=== PATIENT | female | born 1955 | race Caucasian/White ===

== ENCOUNTER → 2020-10-29 | Outpatient (CLI) | payer OTHER ==
[~2020-10-29] MED LIST: ASPI81TA45 PO; DIPH25CA61 PO; LEVO112T2 PO; MONT10TA6 PO; PROP10TA16 PO
== END | disposition home or self-care (01) ==
LOC: STAR 09:25
PROVIDERS: ATTEND Surgery
DX: Z01.818 Encounter for other preprocedural examination (principal); K43.9 Ventral hernia without obstruction or gangrene; D48.1 Neoplasm of uncertain behavior of connective and other soft tissue; Z20.822 Contact with and (suspected) exposure to COVID-19
CPT/HCPCS: 93005; U0003; U0005

== ENCOUNTER 2020-11-04 08:35 | Day surgery (SDC) | payer OTHER ==
[~2020-11-04] VITALS: Ht 154.9 cm; Wt 73.5 kg
[2020-11-04] MEDS ORDERED: CHLORHEXIDINE 15 ML UDC PO ONE (09:00)
[2020-11-04] MEDS ORDERED: LACTATED RINGERS 1,000 ML IV SCH (09:00)
[2020-11-04 09:06] VITALS: BP 124/82
[2020-11-04] MEDS ORDERED: MIDAZOLAM 1 MG/ML, 2ML ONE (09:10)
[2020-11-04] MEDS ORDERED: FENTANYL PF 250 MCG/5ML ONE (09:10)
[2020-11-04] MEDS ORDERED: BUPIVACAINE/PF 0.5% ONE (09:26)
[2020-11-04] MEDS ORDERED: LIDOCAINE/PF 1%-EPI 1:200K, 30 ML ONE (09:26)
[2020-11-04] MEDS ORDERED: EPINEPHRINE 1 MG/ML, 1ML ONE (09:26)
[2020-11-04] MEDS ORDERED: ALBUTEROL SULFATE 2.5 MG/3 ML NPPB PRN (09:30)
[2020-11-04] MEDS ORDERED: OXYcodone 5 MG/5 ML ORAL.SOL UDC PO PRN (09:30)
[2020-11-04] MEDS ORDERED: HALOPERIDOL 5 MG/ML IV PRN (09:30)
[2020-11-04] MEDS ORDERED: DIPHENHYDRAMINE 50 MG/ML, 1ML IVPush PRN (09:30)
[2020-11-04] MEDS ORDERED: FENTANYL PF 100 MCG/2ML IV PRN (09:30)
[2020-11-04] MEDS ORDERED: HYDROmorphone 1 MG/ML, 1ML INJ IVPush PRN (09:30)
[2020-11-04] MEDS ORDERED: PROMETHAZINE 25 MG/ML, 1ML IVPush PRN (09:30)
[2020-11-04] MEDS ORDERED: ACETAMINOPHEN 325 MG TABLET PO PRN (09:30)
[2020-11-04] MEDS ORDERED: MEPERIDINE/PF 25MG/0.5ML IVPush PRN (09:30)
[2020-11-04] MEDS ORDERED: hydrALAzine 20 MG/ML, 1ML IV PRN (09:30)
[2020-11-04] MEDS ORDERED: LABETALOL 5MG/ML, 20ML IV PRN (09:30)
[2020-11-04] MEDS ORDERED: OXYC5TAB98 PO (09:33)
[2020-11-04] MEDS ORDERED: SCOPOLAMINE 1MG PATCH TD ONE (09:41)
[2020-11-04] MEDS ORDERED: CEFAZOLIN 1,000 MG ONE (10:08)
[2020-11-04] MEDS ORDERED: KETOROLAC 30 MG/1 ML ONE (10:08)
[2020-11-04] MEDS ORDERED: PROPOFOL 10 MG/ML, 20ML ONE (10:08)
[2020-11-04] MEDS ORDERED: ONDANSETRON 2MG/ML, 2ML ONE (10:08)
[2020-11-04] MEDS ORDERED: ROCURONIUM 10MG/ML,5ML ONE (10:08)
[2020-11-04] MEDS ORDERED: SUCCINYLCHOLINE 20 MG/ML, 10ML ONE (10:08)
[2020-11-04] MEDS ORDERED: DEXAMETHASONE 4 MG/ML, 1ML ONE (10:08)
[2020-11-04] MEDS ORDERED: NEOSTIGMINE 1 MG/ML, 10ML ONE (10:08)
[2020-11-04] MEDS ORDERED: GLYCOPYRROLATE 0.2MG/1ML, 5ML ONE (10:08)
[2020-11-04] MEDS ORDERED: ACETAMINOPHEN 650 MG/20.3 ML UDC ONE (11:15)
== END 2020-11-04 12:50 | disposition home or self-care (01) ==
LOC: OR 08:35 → MERGE 11:00 → OR 12:50
PROVIDERS: ATTEND Surgery
DX: K43.6 Other and unspecified ventral hernia with obstruction, without gangrene (principal); I10 Essential (primary) hypertension; E03.9 Hypothyroidism, unspecified; F17.210 Nicotine dependence, cigarettes, uncomplicated; Z79.890 Hormone replacement therapy; Z79.899 Other long term (current) drug therapy; Z88.0 Allergy status to penicillin; Z88.2 Allergy status to sulfonamides
CPT/HCPCS: 49572; C1781; J0171; J0330; J0690; J1100; J1885; J2250; J2405; J2704; J2710; J3010; J7120